=== PATIENT | male | born 1950 | race Caucasian/White ===

== ENCOUNTER 2021-07-13 10:31 | Emergency (ER) | payer MEDICARE ==
[~2021-07-13] VITALS: Ht 177.8 cm; Wt 74.8 kg
[2021-07-13] MEDS ORDERED: ACETAMINOPHEN500 MG PO (12:29)
[2021-07-13] MEDS ORDERED: HYDR1TAB94 PO (12:34)
== END 2021-07-13 12:47 | disposition home or self-care (01) ==
LOC: ER 10:31
DX: S42.032A Displaced fracture of lateral end of left clavicle, initial encounter for closed fracture (principal); S06.9X9A Unspecified intracranial injury with loss of consciousness of unspecified duration, initial encounter; W01.0XXA Fall on same level from slipping, tripping and stumbling without subsequent striking against object, initial encounter; F17.200 Nicotine dependence, unspecified, uncomplicated
CPT/HCPCS: 70450; 73030